=== PATIENT | female | born 1960 | race Caucasian/White ===

== ENCOUNTER → 2020-07-20 | Outpatient (CLI) | payer SELFPAY | LOC: LAB 19:17 → LAB SHORT 19:17 | DX: N92.1 Excessive and frequent menstruation with irregular cycle (principal) | CPT/HCPCS: 87086 ==

== ENCOUNTER 2021-06-11 09:02 | Day surgery (SDC) | payer BC ==
[~2021-06-11] VITALS: Ht 172.7 cm; Wt 99.0 kg
[~2021-06-11 09:02] MED LIST: Amlodipine Bes2.5 MG PO; LOSARTAN-HCTZ1 EAC5 PO; OXYB5 PO
[2021-06-11] MEDS ORDERED: VIT1CAPS12 (09:14)
[2021-06-11] MEDS ORDERED: ZINC15 (09:14)
[2021-06-11] MEDS ORDERED: HYDCHL25 (09:14)
== END 2021-06-11 12:20 | disposition home or self-care (01) ==
LOC: ORSCSDS 09:02
DX: Z12.11 Encounter for screening for malignant neoplasm of colon (principal); K50.90 Crohn's disease, unspecified, without complications; Z86.010 Personal history of colon polyps; K62.1 Rectal polyp; D12.5 Benign neoplasm of sigmoid colon; K63.5 Polyp of colon; D12.2 Benign neoplasm of ascending colon; D12.3 Benign neoplasm of transverse colon; D12.4 Benign neoplasm of descending colon; K64.8 Other hemorrhoids; Z79.899 Other long term (current) drug therapy
CPT/HCPCS: 88305; J2704; J7120

== ENCOUNTER 2021-11-01 09:13 | Day surgery (SDC) | payer BC ==
[~2021-11-01] VITALS: Ht 172.7 cm; Wt 98.8 kg
[~2021-11-01 09:13] MED LIST changes: +HYDCHL25; +VIT1CAPS12; +ZINC15
--- NOTE | 2021-11-01 10:31 | NUR ---
Ambulatory in Day Surgery. History, Chart, Medications and Allergies reviewed before start of procedure.Lungs clear T/O to Auscultation. Patient confirms NPO status and agrees with scheduled surgery. Pre-Op teaching done. Pt verbalizes understanding. Patient States Post-Procedure ride home has been arranged.
--- NOTE | 2021-11-01 14:09 | NUR ---
Patient up to Ambulate independently. Gait steady. Discharge instructions reviewed with patient. Patient verbalizes understanding. Copy given to patient to take home. Dressing to procedure site clean, dry, intact with no visible drainage, swelling, erythema or bruising noted. Discharged via wheelchair to private car for ride home WITH
== END 2021-11-01 23:46 | disposition home or self-care (01) ==
LOC: ORSCMMR 09:13 → NM 09:30 → ORSCMMR 10:00 → NM 10:00 → ORSCMMR 23:46
PROVIDERS: Surgery
PROC: 0HBU0ZZ Excision of Left Breast, Open Approach (ICD-10-PCS; principal; 2021-11-01 11:00)
PROC: 07B60ZX Excision of Left Axillary Lymphatic, Open Approach, Diagnostic (ICD-10-PCS; principal; 2021-11-01 11:00)
DX: C50.812 Malignant neoplasm of overlapping sites of left female breast (principal); D36.0 Benign neoplasm of lymph nodes; I10 Essential (primary) hypertension; G47.33 Obstructive sleep apnea (adult) (pediatric); Z79.899 Other long term (current) drug therapy
CPT/HCPCS: 38792; 88307; 88342; A9270; A9520; J0690; J1100; J1170; J2405; J2704; J2795; J3010; J7120; Q9968

== ENCOUNTER 2021-12-08 09:06 | Day surgery (SDC) | payer BC ==
[~2021-12-08] VITALS: Ht 172.7 cm; Wt 100.7 kg
--- NOTE | 2021-12-08 10:29 | NUR ---
Ambulatory in [facility] warming gown applied. Surgical site prepped with 2% Chlorhexidine cloth wipe. History, Chart, Medications and Allergies reviewed before start of procedure.Lungs clear T/O to Auscultation. Patient confirms NPO status and agrees with scheduled surgery. Patient States Post-Procedure ride home has been arranged. Pre-Op teaching done. Pt verbalizes understanding. Patient States Post-Procedure ride home has been arranged. Patient reports completing Chlorhexadine shower X2 prior to admission to hospital.
--- NOTE | 2021-12-10 10:38 | NUR ---
12/10/21 1038 Lissette Thompson VERIFICATIONS: EDIT CHART.
== END 2021-12-08 13:25 | disposition home or self-care (01) ==
LOC: ORSCMMR 09:06 → ORD 10:30 → ORSCMMR 13:25
PROVIDERS: Surgery
PROC: B543ZZA Ultrasonography of Right Jugular Veins, Guidance (ICD-10-PCS; principal; 2021-12-08 10:30)
PROC: 05HM33Z Insertion of Infusion Device into Right Internal Jugular Vein, Percutaneous Approach (ICD-10-PCS; principal; 2021-12-08 10:30)
DX: C50.812 Malignant neoplasm of overlapping sites of left female breast (principal); I10 Essential (primary) hypertension; G47.33 Obstructive sleep apnea (adult) (pediatric); Z79.899 Other long term (current) drug therapy
CPT/HCPCS: 77001; A9270; C1788; J0690; J1100; J1642; J2250; J2405; J2704; J2795; J3010; J7120